=== PATIENT | female | born 2000 | race Caucasian/White ===

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

== ENCOUNTER 2019-09-05 19:20 | Emergency (ER) | payer BC ==
[~2019-09-05] VITALS: Ht 172.7 cm; Wt 62.6 kg
[2019-09-05] MEDS ORDERED: ALBU90OI INH (19:32)
== END 2019-09-05 20:50 | disposition home or self-care (01) ==
LOC: ER 19:20
DX: Z04.1 Encounter for examination and observation following transport accident (principal); R51 Headache; J45.909 Unspecified asthma, uncomplicated; Z79.899 Other long term (current) drug therapy; V49.50XA Passenger injured in collision with unspecified motor vehicles in traffic accident, initial encounter
CPT/HCPCS: 99283

== ENCOUNTER 2021-04-07 16:11 | Emergency (ER) | payer BC ==
[~2021-04-07] VITALS: Ht 175.3 cm; Wt 63.5 kg
[~2021-04-07 16:11] MED LIST changes: +ALBU90OI INH
[2021-04-07] MEDS ORDERED: CYCL10 PO (17:22)
== END 2021-04-07 17:28 | disposition home or self-care (01) ==
LOC: ER 16:11
DX: M54.32 Sciatica, left side (principal); J45.909 Unspecified asthma, uncomplicated
CPT/HCPCS: 99282

== ENCOUNTER 2024-03-03 09:56 | Emergency (ER) | payer OTHER ==
[~2024-03-03] VITALS: Ht 172.7 cm; Wt 59.0 kg
[~2024-03-03 09:56] MED LIST changes: +CEPH500 PO; +CYCL10 PO; +Prednisone20 MG PO
[2024-03-03 10:49] VITALS: BP 128/76
[2024-03-03] MEDS ORDERED: Ipratropium/Albuterol SulF 2.5-0.5MG/3 ML Amp INH ONE (10:55)
[2024-03-03] MEDS ORDERED: Dexamethasone Sod Phos 10 MG/ML 1ML VIAL PO ONE (10:55)
== END 2024-03-03 13:34 | disposition left against medical advice (07) ==
LOC: ER 09:56
DX: R06.02 Shortness of breath (principal); J45.909 Unspecified asthma, uncomplicated; Z79.52 Long term (current) use of systemic steroids; Z79.899 Other long term (current) drug therapy; F17.210 Nicotine dependence, cigarettes, uncomplicated; Z59.89 Other problems related to housing and economic circumstances
CPT/HCPCS: 93005; 93010; 99281-25

== ENCOUNTER 2024-03-03 22:34 | Emergency (ER) | payer OTHER ==
[~2024-03-03] VITALS: Ht 172.7 cm; Wt 59.0 kg
[2024-03-03 22:40] VITALS: BP 134/78
[2024-03-03] MEDS ORDERED: Ipratropium/Albuterol SulF 2.5-0.5MG/3 ML Amp INH PRN (22:50)
[2024-03-03] MEDS ORDERED: Albuterol 2.5 MG/3 ML VIAL INH SCH (23:45)
[2024-03-03] MEDS ORDERED: Dexamethasone Sod Phos 10 MG/ML 1ML VIAL PO ONE (23:55)
[2024-03-04] MEDS ORDERED: RX Prepack Albuterol 1 PREPACK/6.7 GM INH UD ONE (00:45)
== END 2024-03-04 00:55 | disposition home or self-care (01) ==
LOC: ER 22:34
DX: J45.909 Unspecified asthma, uncomplicated (principal); Z79.899 Other long term (current) drug therapy
CPT/HCPCS: 94640; 94644; 94664; 99284-25; A9270; J1100

== ENCOUNTER 2024-03-24 20:08 | Emergency (ER) | payer OTHER ==
[~2024-03-24] VITALS: Ht 172.7 cm; Wt 62.6 kg
[2024-03-24 20:16] VITALS: BP 145/91
[2024-03-24] MEDS ORDERED: PredniSONE 20 MG Tab PO ONE (22:35)
[2024-03-24] MEDS ORDERED: Albuterol 2.5 MG/3 ML VIAL INH SCH (22:35)
[2024-03-24] MEDS ORDERED: RX Prepack Albuterol 1 PREPACK/6.7 GM INH UD ONE (22:35)
== END 2024-03-25 00:02 | disposition home or self-care (01) ==
LOC: ER 20:08
DX: J45.909 Unspecified asthma, uncomplicated (principal); F17.210 Nicotine dependence, cigarettes, uncomplicated; Z79.52 Long term (current) use of systemic steroids
CPT/HCPCS: 94644; 94664; 99284-25; A9270; J7512

== ENCOUNTER 2024-07-06 04:24 | Emergency (ER) | payer OTHER ==
[~2024-07-06] VITALS: Ht 172.7 cm; Wt 58.1 kg
[2024-07-06] MEDS ORDERED: Ipratropium/Albuterol SulF 2.5-0.5MG/3 ML Amp INH ONE ×3 (04:35→06:25)
[2024-07-06] MEDS ORDERED: MethylPREDNISolone Sod Succ 125 MG Vial IM ONE (06:25)
[2024-07-06] MEDS ORDERED: Albuterol 2.5 MG/3 ML VIAL INH ONE (06:40)
[2024-07-06 07:18] VITALS: BP 109/60
[2024-07-06 07:54] LABS: Influenza A, PCR NEGATIVE (NEGATIVE); Influenza B, PCR NEGATIVE (NEGATIVE); Resp Syncytial Virus, PCR NEGATIVE (NEGATIVE); SARS-Cov-2 (COVID-19) PCR, MMC NEGATIVE (NEGATIVE)
[2024-07-07] MEDS ORDERED: Zithromax250 MG PO (10:01)
== END 2024-07-06 08:11 | disposition left against medical advice (07) ==
LOC: ER 04:24
PROVIDERS: Student in an Organized Health Care Education/Training Program
DX: J45.901 Unspecified asthma with (acute) exacerbation (principal); F17.210 Nicotine dependence, cigarettes, uncomplicated; Z79.1 Long term (current) use of non-steroidal anti-inflammatories (NSAID)
CPT/HCPCS: 0241U; 71046; 93005; 93010; 94640; 94664; 96372; 99283-25; J2919